=== PATIENT | male | born 1975 | race Two or more races ===

== ENCOUNTER → 2021-09-28 | Outpatient (CLI) | payer OTHER ==
[~2021-09-28] MED LIST: OXYC-325 PO
== END ==
LOC: LAB 10:34
PROVIDERS: ATTEND Surgery
DX: Z01.812 Encounter for preprocedural laboratory examination (principal); Z20.822 Contact with and (suspected) exposure to COVID-19; K42.9 Umbilical hernia without obstruction or gangrene
CPT/HCPCS: U0003; U0005

== ENCOUNTER 2021-10-01 05:57 | Day surgery (SDC) | payer OTHER ==
[~2021-10-01] VITALS: Ht 172.7 cm; Wt 89.5 kg
[2021-10-01] MEDS ORDERED: PROCHLORPERAZINE 10 MG/2 ML VIAL. IVP PRN (06:00)
[2021-10-01] MEDS ORDERED: fentaNYL PF VIAL 100 MCG/2 ML VIAL IVP PRN ×2 (06:00)
[2021-10-01] MEDS ORDERED: IV RINGERS,LACTATED 1000ML 1,000 ML IV SCH (06:00)
[2021-10-01] MEDS ORDERED: HYDROmorphone 2 MG/ML INJ. IVP PRN (06:00)
[2021-10-01] MEDS ORDERED: MORPHINE SULFATE 2 MG/ML INJ. IVP PRN (06:00)
[2021-10-01 06:27] VITALS: BP 138/80
[2021-10-01] MEDS ORDERED: PROPOFOL 10 MG/ML (20ML) VIAL. IV ONE (06:51)
[2021-10-01] MEDS ORDERED: fentaNYL PF VIAL 100 MCG/2 ML VIAL ONE ×2 (06:52→09:10)
[2021-10-01] MEDS ORDERED: ROCURONIUM 50 MG/5 ML VIAL. ONE ×2 (06:53→07:53)
[2021-10-01] MEDS ORDERED: SUCCINYLCHOLINE 200 MG/10 ML VIAL. ONE (06:53)
[2021-10-01] MEDS ORDERED: BUPIVACAINE-EPI 0.5% 30 ML VIAL KIT. ONE (07:02)
[2021-10-01] MEDS ORDERED: GLYCOPYRROLATE 1 MG/5 ML VIAL. ONE (07:33)
[2021-10-01] MEDS ORDERED: DEXAMETHASONE SOD PHOS 4 MG/ML VIAL ONE (07:48)
[2021-10-01] MEDS ORDERED: PHENYLEPHRINE in 0.9% NACL PF 1 MG/10 ML SYRINGE. IV ONE (07:53)
[2021-10-01] MEDS ORDERED: BUPIVACAINE-EPI 0.5% 30 ML VIAL KIT. INJ ONE (07:54)
[2021-10-01] MEDS ORDERED: SUGAMMADEX SODIUM 200 MG/2 ML VIAL. IVP ONE (08:00)
[2021-10-01] MEDS ORDERED: ONDANSETRON PF 4 MG/2 ML VIAL. ONE (08:08)
[2021-10-01] MEDS ORDERED: LIDOCAINE 1% PF 5 ML VIAL. ONE (08:09)
[2021-10-01] MEDS ORDERED: NEOSTIGMINE METHYLSULFATE 5 MG/5 ML SYRINGE. ONE (08:12)
[2021-10-01] MEDS ORDERED: KETOROLAC 30 MG/ML VIAL. ONE (08:15)
--- NOTE | 2021-10-01 08:55 | PDOC4 ---
Operative Note Operative Note Operative Note: Preoperative Diagnosis: Umbilical hernia Postoperative Diagnosis: Same Procedure: Umbilical hernia repair with mesh Surgeon: Nader Web [employer] Press Feeder: Judson Garcia MS 3 Anesthesia: General EBL: 10 mL Specimen: None Drains: None Complications: None Indication: The patient is a 46-year-old male who is referred with umbilical hernia. He is interested in operative repair. The risks of surgery were disc ussed which include bleeding, infection, recurrence, pain, anesthetic risk, potential need for additional surgery procedure. He understands and would like to proceed. Description: The patient was taken to the operating room and placed supine on the operating table. General anesthesia was performed. The abdomen is prepped with ChloraPrep and draped with sterile towels, sheets, and an Ioban. A curved infraumbilical incision was made with a scalpel. Cautery dissection was carried down to the fascia. The umbilical tissue was elevated off exposing the hernia defect. There was a moderate sized hernia sac with some adherent omentum. The h ernia sac was opened and the omentum was mobilized and reduced. The hernia sac was then sewn shut with 3-0 Vicryl. A preperitoneal plane was developed circumferentially using blunt dissection. The hernia sac was then fully reduced. A small Ventralex ST mesh was placed in the newly formed preperitoneal plane. The mesh was sutured into position with 0 Prolene in a horizontal mattress fashion. The fascial edges were closed over the mesh with 0 Prolene. The umbilicus was secured back to the fascia with 0 Vicryl. The subcutaneous tissue was closed with 3-0 Vicryl. The skin was approximated with 4-0 Monocryl and infiltrated with half percent Marcaine with epinephrine. Steri-Strips and a sterile dressing were applied. The patient tolerated the procedure well and was sent to the recovery room in stable condition. At the end of the case all counts were correct. WILLIAM CARLOS MD Oct 01, 2021 08:55
[2021-10-01] MEDS ORDERED: OXYC-325 PO (08:57)
--- NOTE | 2021-10-01 08:59 | DISCH ---
DISCHARGE INSTRUCTIONS Condition on Discharge Condition on Discharge: Stable Activity After Discharge Activity Instructions for Disc: Other, see below (No lifting over 20 lbs X 4 weeks) Diet after Discharge Diet after Discharge: Regular Wound Incision Care Wound/Incision Care: Other, see below (keep dressing clean and dry X 72 hours, may then remove and shower, keep binder on while awake) Follow-Up Follow up with: Dr Carlos in office in 2 weeks in office, call for appt [phone] WILLIAM CARLOS MD Oct 01, 2021 08:59
[2021-10-01] MEDS ORDERED: oxyCODONE/APAP 5/325 1 TAB TABLET PO ONE (09:45)
[2021-10-01 10:04] VITALS: BP 120/63
== END 2021-10-01 10:20 | disposition home or self-care (01) ==
LOC: SURG 05:57
PROVIDERS: ATTEND Surgery
DX: K42.9 Umbilical hernia without obstruction or gangrene (principal); Z79.899 Other long term (current) drug therapy; Z72.89 Other problems related to lifestyle; Z98.890 Other specified postprocedural states
CPT/HCPCS: 49585; A4364; A4930; A6402; C1781; J0330; J0690; J1100; J1885; J2370; J2405; J2704; J2710; J3010; J3490; A4452